=== PATIENT | male | born 1965 | race Caucasian/White ===

== ENCOUNTER 2016-05-02 11:16 | Emergency (ER) | payer OTHER ==
--- NOTE | 2016-05-02 11:39 | ED Physician Documentation ---
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 bit which punctured flexor portion pip lt index finger Onset: just prior to arrival Where: home Severity: mild, moderate Duration: persistent since, intermittent pain Context: laceration Location of Injury: L fingers Modifying Factors: pain on movement Further Comments: yes (lost distal phalynx prev injury) - ROS CONST: no problems GI/: denies: problems urinating, nausea, vomiting NEURO: none CVS/RESP: none MS/SKIN/LYMPH: none - PAST HX Past History: other (ihd) Immunizations: denies: UTD Allergies/Adverse Reactions: Allergies Allergy/AdvReac Type Severity Reaction Status Date / Time Penicillins Allergy Intermediate Generalized Verified 05/02/16 12:22 Redness Home Medications: Ambulatory Orders Medication Instructions Recorded Cephalexin [Keflex] 500 mg PO QID #40 capsule 05/02/16 - SOCIAL HX Smoking History: non-smoker Alcohol Use: occasionally Drug Use: none - FAMILY HX Family History: no significant history - VITAL SIGNS Vital Signs: Vital Signs Temp Pulse Resp BP Pulse Ox 98.0 F 77 16 133/95 98 05/02/16 11:25 05/02/16 11:25 05/02/16 11:25 05/02/16 11:25 05/02/16 11:25 - REVIEWED ASSESSMENTS Nursing Assessment Reviewed: Yes Vitals Reviewed: Yes ED Results Lab/Radiology - Radiology Radiology Impressions: xrayreveals no apparent osseous injury - Orders Orders: ED Orders Category Date Time Status XRAY 2ND FINGER [FINGER 2 VIEWS OR MORE] [RAD] Stat Exams 05/02/16 Ordered Diph,Pertuss(Acell),Tet Vac/Pf [Adacel] Med 05/02/16 11:35 Once 0.5 ml IM .ONCE ONE Hand Injury Physical Exam - Exam General Appearance: mild distress Hand: other (as afore described) Wrist: normal inspection Neuro: sensation nml, motor nml Vascular: no vascular compromise Tendons: tendon function nml Forearm/Elbow/Arm: uninjured above wrist Skin: warm/dry Head/ENT: nml inspection Neck/Back: nml inspection Resp/CVS: chest non-tender, breath sounds nml, heart sounds nml, lungs clear, reg. rate & rhythm Abdomen: non-tender Discharge Clincal Impression: Puncture wound of left index finger Prescriptions: Cephalexin [Keflex] 500 mg PO QID #40 capsule Home Medications: Ambulatory Orders Cephalexin [Keflex] 500 mg PO QID #40 capsule 05/02/16 Comments: keep clean cleanse freq w/soap water and betadine-sterile dressing Condition: Good Disposition: 01 HOME, SELF-CARE Decision to Admit: NO Decision Time: 12:26
[2016-05-02] MEDS: CEPHALEXIN 250 MG CAPSULE PO ONE (12:25)
[2016-05-02] MEDS: DIPH,PERTUSS(ACELL),TET VAC/PF 0.5 ML DISP.SYRIN IM ONE (12:30)
[2016-05-02 13:17] VITALS: BP 117/93
--- NOTE | 2016-05-03 15:45 | Diagnostic Imaging Report ---
CATHY ZAMORA [facility] [address] [facility] [address] 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 COMPARISON: None available. TECHNIQUE: Three views of the left index finger were performed. FINDINGS: No acute fracture is identified about the left index finger. 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 No radiopaque foreign bodies are identified in the soft tissues. IMPRESSION: 1. No acute fracture of the left index finger. 2. 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 Electronically signed on May 02, 2016 12:05:11 PM COMPENSATOR WORKER by: Darrin EWING
== END 2016-05-02 12:55 | disposition home or self-care (01) ==
LOC: ED 11:16
DX: S61.231A Puncture wound without foreign body of left index finger without damage to nail, initial encounter (principal); X58.XXXA Exposure to other specified factors, initial encounter
CPT/HCPCS: 73140; 90471; 90715; 99283

== ENCOUNTER 2016-07-25 17:29 | Emergency (ER) | payer OTHER ==
[2016-07-25 17:48] VITALS: BP 116/75
--- NOTE | 2016-07-25 18:33 | Diagnostic Imaging Report ---
[facility] [address] [address] Report Submission Date: July 25, 2016 6:30:15 PM CDT Patient Study Name: MAYA FAITH Date: July 25, 2016 6:03:32 PM CDT Modality Type: CR Gender: M Description: LOWER EXTREMITY : 67 Institution: [facility] Physician: CATHY ZAMORA - REGINA Right foot, 3 views History: Foot pain Findings: The osseous, joint and soft tissue structures are normal. Impression: Normal. Electronically signed on July 25, 2016 6:30:15 PM CDT by: Yamil EWING
--- NOTE | 2016-07-25 19:15 | ED Physician Documentation ---
Lower Extremity Problem - HISTORIAN Historian: patient, spouse - HPI Stated Complaint: rt foot pain Chief Complaint: Lower Extremity Problem Location of Injury: R foot Onset: days ago (onset lat foot pain 2 wks ago after working on trailer w/soft sole crocks. bothers most days. on feet xs today w/sig exab pain martínez 4th metatarsal ext to ant calcaneus to toe and now up leg and occ hip-pt thinks due to limping) Timing: worse Duration: constant Recent Injury: No Severity: moderate Quality: pain, swelling (minimal), tenderness. denies: numbness, tingling Exacerbated By: walking, other (severe few steps after sitting for awhile or out of bed) Relieved By: rest (takes advil-helps some) Associated Symptoms: denies: chest pain - ROS CONST: no problems MS/SKIN/LYMPH: none CVS/RESP: none GI/: none EYES/ENT: none NERUO/PSYCH: difficulty walking. denies: headache, dizziness, anxiety, depression - PAST HX Past History: other (htn hi chol ihd) PE Risk Factors: hypertension Surgeries/Procedures: other (2 stents) Allergies/Adverse Reactions: Allergies Allergy/AdvReac Type Severity Reaction Status Date / Time Penicillins Allergy Intermediate Generalized Verified 07/25/16 18:01 Redness Home Medications: Ambulatory Orders Medication Instructions Recorded Aspirin [Adult Low Dose Aspirin EC] 81 mg PO D 05/02/16 Atorvastatin Calcium 40 mg PO HS 05/02/16 Carvedilol [Coreg] 25 mg PO BID 05/02/16 Clopidogrel Bisulfate [Plavix] 75 mg PO HS 05/02/16 Hydrochlorothiazide [Hydrodiuril] 12.5 mg PO HS 05/02/16 Lisinopril [Zestril] 40 mg PO BID 05/02/16 Nitroglycerin [Nitrostat] 0.4 mg SL PRN PRN 05/02/16 Monroe-3S/Dha/Epa/Fish Oil [Fish 1 tab PO BID 05/02/16 Oil 1,200 mg Softgel] Pantoprazole Sodium [Protonix] 40 mg PO D 05/02/16 amLODIPine BESYLATE [Norvasc] 2.5 mg PO DAILY 05/02/16 Varenicline Tartrate [Chantix] 1 mg PO BID 07/25/16 - SOCIAL HX Smoking History: quit greater than 1 year (when had stents) Alcohol Use: occasionally Drug Use: none - FAMILY HX Family History: none (f-d-h) - VITAL SIGNS Vital Signs: Vital Signs Temp Pulse Resp BP Pulse Ox 97.6 F 87 14 116/75 96 07/25/16 17:30 07/25/16 17:30 07/25/16 17:30 07/25/16 17:30 07/25/16 17:30 - REVIEWED ASSESSMENTS Nursing Assessment Reviewed: Yes Vitals Reviewed: Yes ED Results Lab/Radiology - Radiology Radiology Impressions: xray rt foot=no acute disease - Orders Orders: ED Orders Category Date Time Status FOOT 3 VIEWS OR MORE [RAD] Stat Exams 07/25/16 Completed Lower Extremity Problem - EXAM General Appearance: mild distress (as afore described) Neuro/Tendon: normal sensation, normal motor functions, normal tendon functions , responds to pain. No: no evidence tendon injury EENT: ENT inspection normal RESPIRATORY: no resp distress, chest non-tender, breath sounds normal CVS: reg rate & rhythm, heart sounds normal JOINT: joints nml, nml ROM. No: Nml gait/weight bearing VASCULAR: no vascular compromise, pulses full/equal NEURO/PSYCH: oriented X3, motor nml, sensation nml, mood/affect nml SKIN: warm/dry, normal color. No: cyanosis, diaphoresis, jaundice Discharge Clincal Impression: Plantar fasciitis of right foot Referrals: Primary Doctor,No [Primary Care Provider] - 2 Days Home Medications: Ambulatory Orders Aspirin [Adult Low Dose Aspirin EC] 81 mg PO D 05/02/16 Atorvastatin Calcium 40 mg PO HS 05/02/16 Carvedilol [Coreg] 25 mg PO BID 05/02/16 Clopidogrel Bisulfate [Plavix] 75 mg PO HS 05/02/16 Hydrochlorothiazide [Hydrodiuril] 12.5 mg PO HS 05/02/16 Lisinopril [Zestril] 40 mg PO BID 05/02/16 Nitroglycerin [Nitrostat] 0.4 mg SL PRN PRN 05/02/16 Monroe-3S/Dha/Epa/Fish Oil [Fish Oil 1,200 mg Softgel] 1 tab PO BID 05/02/16 Pantoprazole Sodium [Protonix] 40 mg PO D 05/02/16 amLODIPine BESYLATE [Norvasc] 2.5 mg PO DAILY 05/02/16 Varenicline Tartrate [Chantix] 1 mg PO BID 07/25/16 Comments: rec consider f/u w/ orthopedics Condition: Good Disposition: 01 HOME, SELF-CARE Decision to Admit: NO Decision Time: 19:14
== END 2016-07-25 19:00 | disposition home or self-care (01) ==
LOC: ED 17:29
DX: M72.2 Plantar fascial fibromatosis (principal)
CPT/HCPCS: 73630